=== PATIENT | female | born 1995 | race Hispanic/Latino ===

== ENCOUNTER 2017-06-18 13:08 | Emergency (ER) | payer OTHER ==
[2017-06-18] MEDS ORDERED: CIPROFLOXACIN-DEXAMETHASONE (OTIC) 7.5 ML BOTTLE OT ONE (14:30)
== END 2017-06-18 14:12 | disposition home or self-care (01) ==
LOC: ER 13:08
DX: H60.331 Swimmer's ear, right ear (principal)
CPT/HCPCS: 99283